=== PATIENT | female | born 1995 | race American Indian/Alaskan Native ===

== ENCOUNTER 2017-06-26 18:39 | Emergency (ER) | payer OTHER ==
[~2017-06-26] VITALS: Ht 172.7 cm; Wt 61.2 kg
[~2017-06-26 18:39] MED LIST: BACTRIM DS TAB1 EACH PO; BUSPIRONE HCL15 MG PO; CYCLOBENZAPRINE5 MG PO; DAYPRO600 MG PO; DOXYCYCLINE HY100 MG PO; FLAGYL500 MG PO; IBUPROFEN600 MG PO; IBUPROFEN800 MG PO; KEFLEX500 MG PO; MACROBID 100 M100 MG PO; PAROXETINE HCL10 MG PO; PYRIDIUM200 MG PO; ROBAXIN-750750 MG PO; TRAMADOL HCL50 MG PO; ULTRAM50 MG PO; ZOFRAN ODT8 MG PO
[2017-06-26] MEDS ORDERED: ZOFRAN4 MG PO (18:52)
== END 2017-06-26 19:50 | disposition home or self-care (01) ==
LOC: ED 18:39
DX: S61.216A Laceration without foreign body of right little finger without damage to nail, initial encounter (principal); J45.909 Unspecified asthma, uncomplicated; F41.9 Anxiety disorder, unspecified; N83.209 Unspecified ovarian cyst, unspecified side; F17.200 Nicotine dependence, unspecified, uncomplicated; Z88.8 Allergy status to other drugs, medicaments and biological substances; Z79.899 Other long term (current) drug therapy; X58.XXXA Exposure to other specified factors, initial encounter
CPT/HCPCS: 99282

== ENCOUNTER 2017-12-12 17:20 | Emergency (ER) | payer OTHER ==
[~2017-12-12] VITALS: Ht 172.7 cm; Wt 61.2 kg
[~2017-12-12 17:20] MED LIST changes: +ZOFRAN4 MG PO
[2017-12-12] MEDS ORDERED: GABAPENTIN300 MG PO (17:41)
[2017-12-12] MEDS ORDERED: BUPRENORPHINE HC8 MG SL (17:42)
[2017-12-12] MEDS ORDERED: GOLYTELY SOLU4000 ML PO (18:32)
== END 2017-12-12 18:49 | disposition home or self-care (01) ==
LOC: ED 17:20
DX: K59.00 Constipation, unspecified (principal); J45.909 Unspecified asthma, uncomplicated; F41.9 Anxiety disorder, unspecified; F43.10 Post-traumatic stress disorder, unspecified; F17.200 Nicotine dependence, unspecified, uncomplicated; Z79.899 Other long term (current) drug therapy
CPT/HCPCS: 74018; 81001; 84703; 99283

== ENCOUNTER 2018-05-03 22:36 | Emergency (ER) | payer OTHER ==
[~2018-05-03] VITALS: Ht 172.7 cm; Wt 6492.3 kg
[~2018-05-03 22:36] MED LIST changes: +BUPRENORPHINE HC8 MG SL; +GABAPENTIN300 MG PO; +GOLYTELY SOLU4000 ML PO
[2018-05-04] MEDS ORDERED: KEFLEX500 MG PO (00:13)
[2018-05-04] MEDS ORDERED: BACTRIM DS TAB1 EACH PO (00:13)
== END 2018-05-04 00:47 | disposition home or self-care (01) ==
LOC: ED 22:36
DX: L03.114 Cellulitis of left upper limb (principal); F11.10 Opioid abuse, uncomplicated; Z23 Encounter for immunization; F17.200 Nicotine dependence, unspecified, uncomplicated; Z79.899 Other long term (current) drug therapy
CPT/HCPCS: 90471; 90715; 99283

== ENCOUNTER 2018-05-26 20:42 | Emergency (ER) | payer OTHER ==
[~2018-05-26] VITALS: Ht 172.7 cm; Wt 61.2 kg
[2018-05-26] MEDS ORDERED: CEPHALEXIN500 MG PO (21:17)
[2018-05-26] MEDS ORDERED: IBUPROFEN600 MG PO (21:17)
== END 2018-05-26 21:40 | disposition home or self-care (01) ==
LOC: ED 20:42
DX: K08.89 Other specified disorders of teeth and supporting structures (principal); F17.200 Nicotine dependence, unspecified, uncomplicated; Z79.899 Other long term (current) drug therapy
CPT/HCPCS: 99282

== ENCOUNTER 2018-12-11 15:05 | Emergency (ER) | payer OTHER ==
[~2018-12-11] VITALS: Ht 172.7 cm; Wt 61.2 kg
[~2018-12-11 15:05] MED LIST changes: +CEPHALEXIN500 MG PO
== END 2018-12-11 17:40 | disposition home or self-care (01) ==
LOC: ED 15:05
DX: S16.1XXA Strain of muscle, fascia and tendon at neck level, initial encounter (principal); Z88.8 Allergy status to other drugs, medicaments and biological substances; Z79.899 Other long term (current) drug therapy; Y04.8XXA Assault by other bodily force, initial encounter
CPT/HCPCS: 99283

== ENCOUNTER 2019-07-13 12:18 | Emergency (ER) | payer OTHER ==
[~2019-07-13] VITALS: Ht 172.7 cm; Wt 72.6 kg
[2019-07-13] MEDS ORDERED: BACTRIM DS TAB1 EACH PO (14:45)
== END 2019-07-13 15:02 | disposition home or self-care (01) ==
LOC: ED 12:18
DX: N39.0 Urinary tract infection, site not specified (principal); F43.10 Post-traumatic stress disorder, unspecified; F41.9 Anxiety disorder, unspecified; J45.909 Unspecified asthma, uncomplicated; F17.200 Nicotine dependence, unspecified, uncomplicated; Z79.899 Other long term (current) drug therapy; Z88.8 Allergy status to other drugs, medicaments and biological substances
CPT/HCPCS: 36415; 81001; 84703; 87491; 87591; 96372; 99283; J1885

== ENCOUNTER 2022-03-09 16:44 | Observation (INO) | payer OTHER ==
[~2022-03-09] VITALS: Ht 172.7 cm; Wt 82.6 kg
--- NOTE | 2022-03-10 09:24 | PR ---
[facility] [address] [place], [place] [address] Signed AP Progress Notes Datetime Report Generated by PALOMO: 03/10/2022 09:23 Chief Complaint: Fall PHYSICAL EXAM: [id number] General: Normal HEENT: Normal Neurologic: Normal Thyroid: Normal Cardiovascular: Normal Respiratory: Normal Physical Exam Comments: No abdominal bruising. Uterus nontender, gravid, w/ + movement palpated Impression: IUP @ 32w2d Fall w/ contractions; no evidence of abruption Polysubstance use disorder Plan: Pt seen and examined. Doing well. Ambulating, voiding, and tolerating full diet. Denies pain, but c/o very mild uterine cramping. No vaginal bleeding. + movement. Reviewed US yesterday. No evidence of abruption at this point, but continued uterine irritibility. Recommend continued inpatient monitoring likely for another 24 hrs. Will coordinate social media community manager for patient. Called Methadone clinic for updated dosing and confirmed 150mg po daily dose. RN reports debridging machine operator c/o pt and partner in the bathroom for "a couple of hours showering together" with a "rank odor" coming from the bathroom. Pt denies methamphetamine use "in the last 24 hrs." Discussed addicition and treatment in detail. All questions answered. VITAL SIGNS: [id number] Vital Signs: Reviewed; Within Normal Limits EXAM: [id number] Dilatation: 0.0 Contraction Comments: every 2-3 minutes MEMBRANES: [id number] FETUS A: [id number] FHR Baseline: 130 Variability: Moderate 6-25bpm Accelerations: 15X15 FETUS B: [id number] PROGRESS NOTES: [id number] Signing Physician: Daya Kirk DO *Electronically Signed* 03/10/22922 DAYA KIRK DO PATIENT NAME: HEBER GONZALEZ GLORIA PROGRESS NOTE DATE OF : 97 PHYSICIAN: DAYA KIRK DO RPT #: [id number] REPORT IS CONFIDENTIAL AND NOT TO BE RELEASED WITHOUT AUTHORIZATION [address] [place], [place] [address] Signed Copies: ~ *Electronically Signed* 03/10/22922 DAYA KIRK DO PATIENT NAME: HEBER GONZALEZ PROGRESS NOTE DATE OF : 97 PHYSICIAN: DAYA KIRK DO RPT #: [id number] REPORT IS CONFIDENTIAL AND NOT TO BE RELEASED WITHOUT AUTHORIZATION
--- NOTE | 2022-03-10 12:31 | PR ---
[facility] [address] [place], [place] [address] Signed AP Progress Notes Datetime Report Generated by PALOMO: 03/10/2022 12:31 Chief Complaint: Fall PHYSICAL EXAM: [id number] General: Normal HEENT: Normal Neurologic: Normal Thyroid: Normal Cardiovascular: Normal Respiratory: Normal Back: Normal Abdomen: Normal Genitourinary Exam: Not Done Extremities: Normal Physical Exam Comments: No abdominal bruising. Uterus nontender, gravid, w/ + movement palpated Impression: IUP @ 32w2d Fall - no evidence of abruption Polysubstance abuse Plan: Pt denies drug use while inpatient Reviewed aberrant behavior and discussed concerns w/ pt and partner. They will avoid additional aberrant behaviors such as long showers, excessive perfumes/air fresheners, etc. Pt reports no contractions or cramping. C/O constipation. Will start miralax and colace. Consider glyerine suppositories as needed. Will complete 1 hr glucose. Will check fentanyl levels at that time (send out lab) Pt declines referral or transfer to inpatient rehab and feels "really confident about becoming sober on my own." VITAL SIGNS: [id number] Vital Signs: Reviewed; Within Normal Limits EXAM: [id number] Dilatation: 0.0 Contraction Comments: every 2-3 minutes MEMBRANES: [id number] FETUS A: [id number] FHR Baseline: 130 Variability: Moderate 6-25bpm Accelerations: 15X15 FETUS B: [id number] *Electronically Signed* 03/10/22 [facility] KIRK,DAYA D DO PATIENT NAME: HEBER GONZALEZ PROGRESS NOTE DATE OF : [birth year] PHYSICIAN: DAYA KIRK DO RPT #: [id number] REPORT IS CONFIDENTIAL AND NOT TO BE RELEASED WITHOUT AUTHORIZATION [facility] [address] [place] [address] Signed PROGRESS NOTES: [id number] Signing Physician: Daya Kirk DO Copies: ~ *Electronically Signed* 03/10/22 1231 DAYA KIRK DO PATIENT NAME: HEBER GONZALEZ PROGRESS NOTE DATE OF : 97 PHYSICIAN: DAYA KIRK DO RPT #: [id number] REPORT IS CONFIDENTIAL AND NOT TO BE RELEASED WITHOUT AUTHORIZATION
--- NOTE | 2022-03-10 18:52 | PR ---
[facility] [address] [place], [place] [address] Signed AP Progress Notes Datetime Report Generated by PALOMO: 03/10/2022 18:52 Chief Complaint: Fall PHYSICAL EXAM: [id number] General: Normal HEENT: Normal Neurologic: Normal Thyroid: Normal Cardiovascular: Normal Respiratory: Normal Breast: Not Done Back: Normal Abdomen: Normal Genitourinary Exam: Not Done Extremities: Normal Physical Exam Comments: No abdominal bruising. Uterus nontender, gravid, w/ + movement palpated Impression: IUP @ 32w2d Fall Polysubstance use Plan: Reviewed 1 hr glucose normal Continued uterine irritibility ; denies painful contractions. No bleeding. Cat 1 tracing. No evidence of abruption Pt met with group social worker today; reviewed progress w/ Brittaney. Discharge home. Pt agrees and understands the importance of care. Reviewed indicaitons for reevaluation including bleeding or decreased movement. VITAL SIGNS: [id number] Vital Signs: Reviewed; Within Normal Limits EXAM: [id number] Dilatation: 0.0 Contraction Comments: every 2-3 minutes MEMBRANES: [id number] FETUS A: [id number] FHR Baseline: 130 Variability: Moderate 6-25bpm Accelerations: 15X15 FETUS B: [id number] PROGRESS NOTES: [id number] *Electronically Signed* 03/10/22 1852 DAYA KIRK DO PATIENT NAME: HEBER GONZALEZ PROGRESS NOTE DATE OF : 97 PHYSICIAN: DAYA KIRK DO RPT #: [id number] REPORT IS CONFIDENTIAL AND NOT TO BE RELEASED WITHOUT AUTHORIZATION [facility] [address] [place], [place] [address] Signed Signing Physician: Daya Kirk DO Copies: ~ *Electronically Signed* 03/10/22 185 DAYA KIRK DO PATIENT NAME: HEBER GONZALEZ PROGRESS NOTE DATE OF : 97 PHYSICIAN: DAYA KIRK DO RPT #: [id number] REPORT IS CONFIDENTIAL AND NOT TO BE RELEASED WITHOUT AUTHORIZATION
== END 2022-03-10 19:58 | disposition home or self-care (01) ==
LOC: FBCO 16:44 → FBC 17:47
PROVIDERS: ADMIT General Practice; ATTEND General Practice
DX: O47.03 False labor before 37 completed weeks of gestation, third trimester (principal); O99.323 Drug use complicating pregnancy, third trimester; F19.10 Other psychoactive substance abuse, uncomplicated; Z91.81 History of falling; Z3A.32 32 weeks gestation of pregnancy; Z20.822 Contact with and (suspected) exposure to COVID-19
CPT/HCPCS: 36415; 76815; 76817; 82731; 82950; 85027; 86762; 86850; 86900; 86901; 87088; 87340; 87522; 87536; C9803; J7121; U0003

== ENCOUNTER 2022-04-21 14:27 | Inpatient (IN) | payer OTHER ==
[~2022-04-21] VITALS: Ht 172.7 cm; Wt 97.5 kg
[2022-04-27] MEDS ORDERED: METHADONE HCL40 MG PO (07:35)
--- NOTE | 2022-04-27 10:22 | NUR ---
04/27/22 1022 Marilu Coker 0924 PT ARRIVED IN PACU SLEEPY. 0945 C/O ABD PAIN 06/01 WITH FUNDAL MASSAGE. 0949 FENTANYL 50MCG GIVEN IVP. 0950 PT VERY TEARFUL. VERSED 2MG GIVEN IVP. 1000 PT RESTING. REU. NO C/O'S. 1015 TO ROOM 106. SPOUSE AT BEDSIDE. BED PLUGGED IN. REPORT GIVEN TO RN.
--- NOTE | 2022-04-27 12:36 | PR ---
[facility] [address] [place], [place] [address] Signed PP Progress Notes Datetime Report Generated by PALOMO: 04/27/2022 12:36 SUBJECTIVE: [id number] Pain: Abnormal Nausea/Vomiting: Denies Flatus: No Vital Signs: [id number] Vital Signs: Reviewed Notable Details: Severe range BPs; see below EXAM: Ongoing Cardiovascular: Normal Respiratory: Normal Abdomen/Uterus: Normal CVA Tenderness: Not Done Extremities: Normal Incision: Normal Progress: Not Applicable IMPRESSION/PLAN/PROCEDURES: [id number] Progress Notes: Call from RN of pt w/ persistently elevated severe range BPs. No ALICIA, RUQ pain or visual changes. Pt reporting pain not well controlled (see below). Pt was started on labetalol per protocol and BPs now non-severe range. PreE labs pending. Will monitor closely and consider addition of mag sulfate if indicated. Report from RN; pt w/ pipe and machine set up in her hand in hospital bed. was instructed to remove all belongings from room by supervisor dimension warehouse and he complied. He has not returned to the hospital. Reviewed w/ pt; reports that she did not have pipe but admits to machine set up. States she "wanted to smoke because her pain was so bad." Declines nicotine patch. Does not clarify what substance she wanted to smoke. Reviewed pain control w/ RN at bedside. Pt sleepy but rousable. Visually pain appears to be well controlled but pt reporting 10/10. Will see if pt tolerates PO intake and start oral pain meds. Had a long conversation regarding expectations for pain control and multimodal pain control. Pt did receive TAP block postoperatively. Signing Physician: Daya Kirk DO Copies: ~ *Electronically Signed* 04/27/22 1236 DAYA KIRK DO PATIENT NAME: SHERRY GONZALEZA SUJIT RUSSELL GLORIA PROGRESS NOTE DATE OF : 97 PHYSICIAN: DAYA KIRK DO RPT #: [id number] REPORT IS CONFIDENTIAL AND NOT TO BE RELEASED WITHOUT AUTHORIZATION
--- NOTE | 2022-04-27 13:34 | PR ---
[facility] [address] [place], [place] [address] Signed PP Progress Notes Datetime Report Generated by CPN: 04/27/2022 13:34 SUBJECTIVE: [id number] Pain: Abnormal Nausea/Vomiting: Denies Flatus: No Vital Signs: [id number] Vital Signs: Reviewed Notable Details: Severe BPs improved EXAM: Ongoing Cardiovascular: Normal Respiratory: Normal Abdomen/Uterus: Normal CVA Tenderness: Not Done Extremities: Normal Incision: Normal Progress: Not Applicable IMPRESSION/PLAN/PROCEDURES: [id number] Other Impression: PreE w/ severe features Progress Notes: Reviewed labs; labs and BPs confirm dx of preE with severe features. Continue labetalol prn per protocol. Will start Mag Sulfate 6g IV loading dose w/ 2g/hr maintence; reevaulate in 24 hrs. Labs q 6 hr. Pt c/o severe pain. Reviewed multimodal pain control after discussing w/ Nigel ENVIRONMENTAL HEALTH INSPECTOR: TAP block, methadone 200mg po, Ofirmiv 1mg IV q 6 hr prn pain, toradol, Dilaudid 1mg po q2 hr, percocet 10mg PO TID, and cyclobenzaprine 10mg PO daily. Anesthesia open to reevaluation for additional TAP block tomorrow if pain control not adequate. Pt and frustrated w/ pain; had a long and constructive conversation regarding addiction of history and principals of management of pain. Pt and much more agreeable. All questions answered Signing Physician: Daya Kirk DO Copies: ~ *Electronically Signed* 04/27/22 5665 DAYA KIRK DO PATIENT NAME: HEBER GONZALEZ PROGRESS NOTE DATE OF : 97 PHYSICIAN: DAYA KIRK DO RPT #: [id number] REPORT IS CONFIDENTIAL AND NOT TO BE RELEASED WITHOUT AUTHORIZATION
--- NOTE | 2022-04-28 07:49 | PR ---
[facility] [place] [facility] [address] [place], [place] [address] Signed PP Progress Notes Datetime Report Generated by PALOMO: 04/28/2022 07:49 SUBJECTIVE: [id number] Pain: Abnormal Nausea/Vomiting: Denies Flatus: Yes Bowel Movement: No Vital Signs: [id number] Vital Signs: Reviewed Notable Details: Severe BPs improved EXAM: Ongoing Cardiovascular: Normal Respiratory: Normal Abdomen/Uterus: Normal Breasts: Not Done CVA Tenderness: Not Done Extremities: Abnormal Incision: Normal Progress: Not Applicable Exam Comments: SCDs in place. Edema improved. Declined exam of incision IMPRESSION/PLAN/PROCEDURES: [id number] Other Impression: PreE w/ severe features Plan: Continue Present Management Progress Notes: Pt seen and examined. C/O unmanaged pain despite multimodal pain management; Reviewed pain control w/ PM RN. Pt was caught with rebar bender and a straw and nurse described acrid smell in room; pt was then sleepy and comfortable. Discussed w/ pt and she states that she had the rebar bender because she wanted to smoke fentanyl but she claims that she has not used since her hospitalization. Discussed presence of hospital policies to ensure safety of patients and staff. She states that if her is asked to leave she will leave AMA. BPs much improved. Labs show continued thrombocytopenia and Hgb 7.5. Liver enzymes normal and creat stable. Continues on Mag Sulfate. Signing Physician: Daya Kirk DO *Electronically Signed* 04/28/22 0749 DAYA KIRK DO PATIENT NAME: GONZALEZHEBER SUJITKRIS CASTRO PROGRESS NOTE DATE OF : 97 PHYSICIAN: DAYA KIRK DO RPT #: [id number] REPORT IS CONFIDENTIAL AND NOT TO BE RELEASED WITHOUT AUTHORIZATION
--- NOTE | 2022-04-28 14:39 | PR ---
[facility] [address] [place], [place] [address] Signed PP Progress Notes Datetime Report Generated by CPN: 04/28/2022 14:39 SUBJECTIVE: [id number] Pain: Within Normal Limits Nausea/Vomiting: Denies Flatus: Yes Bowel Movement: No Vital Signs: [id number] Vital Signs: Reviewed Notable Details: No severe range BPs EXAM: Ongoing Cardiovascular: Normal Respiratory: Normal Abdomen/Uterus: Normal Lochia: Normal Vulva/Perineum: Not Done Breasts: Not Done CVA Tenderness: Normal Extremities: Normal Incision: Normal Progress: Not Applicable Exam Comments: Fundus firm U-2 nontender. Somewhat bloated and tympanic abdomen. No guarding or rebound. Incision well healing. IMPRESSION/PLAN/PROCEDURES: [id number] Other Impression: PreE w/ severe features Plan: Continue Present Management Progress Notes: Reviewed progress; bps well controlled w/out meds and excellent urine output. Will d/c mag and IV fluids. No tachycardia and normal exam; noted anemia and thrombocytopenia, but no signs of hypovolemia or bleeding. Discussed possible need for iron infusion or transfusion. Keep ohara cath overnight. Repeat labs in AM. Reviewed thrombocytopenia w/ anesthesia; will still consider TAP block later today. Pt very pleasant and cooperative Signing Physician: Daya Kirk DO Copies: ~ *Electronically Signed* 04/28/22 8706 DAYA KIRK DO PATIENT NAME: SHERRY GONZALEZA SUJIT RUSSELL GLORIA PROGRESS NOTE DATE OF : 97 PHYSICIAN: DAYA KIRK DO RPT #: [id number] REPORT IS CONFIDENTIAL AND NOT TO BE RELEASED WITHOUT AUTHORIZATION
--- NOTE | 2022-04-29 08:08 | PR ---
[facility] [address] [place], [place] [address] Signed PP Progress Notes Datetime Report Generated by CPN: 04/29/2022 08:08 SUBJECTIVE: [id number] Pain: Within Normal Limits Nausea/Vomiting: Denies Flatus: Yes Bowel Movement: No Vital Signs: [id number] Vital Signs: Reviewed; Within Normal Limits Notable Details: No severe range BPs EXAM: Ongoing Cardiovascular: Normal Respiratory: Normal Abdomen/Uterus: Normal Lochia: Not Done Vulva/Perineum: Not Done Breasts: Not Done CVA Tenderness: Normal Extremities: Normal Incision: Normal Progress: Not Applicable Exam Comments: Edema improving. Fundus firm U-2 nontender. Incision well healing. IMPRESSION/PLAN/PROCEDURES: [id number] Impression: Normal Progression Other Impression: PreE w/ severe features Plan: Continue Present Management Progress Notes: Pt seen and examinied. Doing well. Voiding and tolerating full diet. Has not ambulated. Pain well controlled w/ current regimen. Hgb improved now 7.6. Plts and Creat stable. Urine output excellent. Discussed iron infusion and pt agrees. Discussed discharge planning; consider d/c home vs d/c to rehabilitation. Pt is at high risk for substance abuse and would like to pursue options. She is worried about management of pain while in rehab. Will consult social work. Signing Physician: Daya Kirk DO Copies: ~ *Electronically Signed* 04/29/22 0808 DAYA KIRK DO PATIENT NAME: LUJANESA SUJIT RUSSELL GLORIA PROGRESS NOTE DATE OF : 97 PHYSICIAN: DAYA KIRK DO RPT #: [id number] REPORT IS CONFIDENTIAL AND NOT TO BE RELEASED WITHOUT AUTHORIZATION
--- NOTE | 2022-04-29 12:09 | NUR ---
RN GIANNI UPDATED ME ON PT'S CONDITION. BABY'S FATHER GONE, NOT MUCH INTEREST IN BABY'S CONDITION. INFORMED RN WE ARE AVAILABLE IF NEEDED-ACKNOWLEDGED.
--- NOTE | 2022-04-30 09:30 | PR ---
[facility] [address] [place], [place] [address] Signed PP Progress Notes Datetime Report Generated by PALOMO: 04/30/2022 09:30 SUBJECTIVE: [id number] Pain: Within Normal Limits Nausea/Vomiting: Denies Flatus: Yes Bowel Movement: No Vital Signs: [id number] Vital Signs: Reviewed; Within Normal Limits Notable Details: No severe range BPs EXAM: Ongoing Cardiovascular: Normal Respiratory: Normal Abdomen/Uterus: Normal Lochia: Normal Vulva/Perineum: Not Done Breasts: Not Done CVA Tenderness: Normal Extremities: Normal Incision: Normal Progress: Not Applicable Exam Comments: Fundus firm U-2 nontender. Incision healing well. Pt declines staple removal at this time. Pedal edema much improved. IMPRESSION/PLAN/PROCEDURES: [id number] Impression: Normal Progression Other Impression: PreE w/ severe features Plan: Continue Present Management Progress Notes: Pt seen and examined. Doing well. Ambulating ,voiding (with postvoid residual 5cc last night), and tolerating full diet. Pain well controlled. No fevers/chills/lightheadeness or other concerns. Has not had bowel movement; reviewed chronic constipation likely exacerbated by opioid dependence. Pt declined bowel regimen in the hospital and we reviewed options for bowel regimen in the future. Recommend establishing w/ PCP and she would like me to reach out to a provider in our office. Reviewed Rubella non-immune status and benefit of MMR vaccination prior to discharge. She strongly declines. Pt declines staple removal at this time; discussed needs to be done in next 1-2 days. Pt desires to have out at [facility]; will likely need out in the ED. Reviewed Preeclampsia in detail. Bps normal; needs bp check in 48-72 hrs. Pt will coordinate bp check either in ED at time of Reviewed / postoperative pain control. Long conversation w/ methadone clinic. They are closed *Electronically Signed* 04/30/22929 DAYA KIRK DO PATIENT NAME: SHERRY GONZALEZA SUJIT CASTRO PROGRESS NOTE DATE OF : 97 PHYSICIAN: DAYA KIRK DO RPT #: [id number] REPORT IS CONFIDENTIAL AND NOT TO BE RELEASED WITHOUT AUTHORIZATION [facility] [address] [place] [id number] Signed tomorrow and unable to provide Methadone dosage for patient after discharge tomorrow. Can coordinate dosing at [facility] on Monday. Pt at extreme risk for relapse. Will keep patient one additional day to provide inpatient AM methadone dosing. Discussed w/ Stewart Hutson in pharmacy if there are any additional options and it does not appear there are other options. Pt understands and agrees. Signing Physician: Daya Kirk DO Copies: ~ *Electronically Signed* 04/30/22929 DAYA KIRK DO PATIENT NAME: LUJANESA SUJIT RUSSELL GLORIA PROGRESS NOTE DATE OF : 97 PHYSICIAN: DAYA KIRK DO RPT #: [id number] REPORT IS CONFIDENTIAL AND NOT TO BE RELEASED WITHOUT AUTHORIZATION
--- NOTE | 2022-04-30 11:29 | PR ---
[facility] [address] [place], [place] [address] Signed PP Progress Notes Datetime Report Generated by CPN: 04/30/2022 11:29 SUBJECTIVE: [id number] Pain: Within Normal Limits Nausea/Vomiting: Denies Flatus: Yes Bowel Movement: No Vital Signs: [id number] Vital Signs: Reviewed; Within Normal Limits Notable Details: No severe range BPs EXAM: Ongoing Cardiovascular: Normal Respiratory: Normal Abdomen/Uterus: Normal Lochia: Normal Vulva/Perineum: Not Done Breasts: Not Done CVA Tenderness: Normal Extremities: Normal Incision: Normal Progress: Not Applicable Exam Comments: Fundus firm U-2 nontender. Incision healing well. Pt declines staple removal at this time. Pedal edema much improved. IMPRESSION/PLAN/PROCEDURES: [id number] Impression: Normal Progression Other Impression: PreE w/ severe features Plan: Continue Present Management Progress Notes: Called to pt room. RN noted acrid odor coming from the room and security was called. Pt denies using illicit drugs, however another city controller was found between the couch cushions. I confronted the pt and she states that she would like to leave. Discharge order placed. Pt states that she has Narcan at home. Pt will be escorted out of the buildling by security. Signing Physician: Daya Kirk DO Copies: ~ *Electronically Signed* 04/30/22 1129 DAYA KIRK DO PATIENT NAME: HEBER GONZALEZ PROGRESS NOTE DATE OF : 97 PHYSICIAN: DAYA KIRK DO [facility] #: [id number] REPORT IS CONFIDENTIAL AND NOT TO BE RELEASED WITHOUT AUTHORIZATION
--- NOTE | 2022-04-30 13:04 | EKG ---
[facility] [address] [facility] [place], [place] [address] Signed Normal sinus rhythm Normal ECG No previous ECGs available Confirmed by UMA BEE MD ([id number]) on 04/30/2022 1:04:45 PM Electronically Signed By: UMA BEE MD 04/30/22 1304 PATIENT NAME: CARLOSHEBERELZBIETA CASTRO Electrocardiogram DATE OF : 97 PHYSICIAN: UMA BEE MD REPORT #: [id number] REPORT IS CONFIDENTIAL AND NOT TO BE RELEASED WITHOUT AUTHORIZATION
--- NOTE | 2022-05-01 17:42 | OR ---
[facility] [address], [place] [address] Signed DATE OF OPERATION: 04/27/2022 SURGEON: Daya Kirk DO PREOPERATIVE DIAGNOSES: 1. Intrauterine at 39 weeks gestation. 2. Breech presentation and declined external cephalic version. 3. Polysubstance abuse. 4. Very limited care. POSTOPERATIVE DIAGNOSES: 1. Intrauterine at 39 weeks gestation. 2. Breech presentation and declined external cephalic version. 3. Polysubstance abuse. 4. Very limited care. PROCEDURE PERFORMED: Primary low transverse delivery. ANESTHESIA: General per the patient's request. TAP block following the procedure. CLOTH COLORS EXAMINER: James Horton MD. DRAINS: Hoyos catheter to gravity. COMPLICATIONS: None. FINDINGS: Delivery of viable female in a jonas breech presentation with Apgars of 9 and 8, weighing 7 pounds 11 ounces. No nuchal cord. Normal uterus, tubes, ovaries and placenta. ESTIMATED BLOOD LOSS: 650 mL. INDICATIONS: Electronically Signed By: DAYA KIRK DO 05/01/22 1742 PATIENT NAME: HEBER EASTON OPERATIVE REPORT DATE OF : [birth year] REPORT #: [id number] PHYSICIAN: DAYA KIRK DO PCP: NO PRIMARY CARE PHYSICIAN REPORT IS CONFIDENTIAL AND NOT TO BE RELEASED WITHOUT AUTHORIZATION [facility] [address] [place] [id number] Signed Ms. Easton is a 26-year-old nulliparous female, who presents to Labor and Delivery at 39 weeks and one day gestation for scheduled primary low transverse delivery for persistent breech presentation. complicated by breech presentation, polysubstance abuse, including methamphetamines and opioids. She is in treatment at the methadone clinic, but also uses large amounts of illicit fentanyl. The patient declined external cephalic version. She declines spinal anesthetic and request general anesthesia. Risks, benefits, and alternatives were discussed in detail with the patient. The patient understands and wishes to proceed with the procedure. TECHNIQUE: The patient was taken to the operating room where a time-out was performed to confirm correct patient and correct procedure. PROCEDURE IN DETAIL: The patient was prepped and draped in the supine position with a bump under the right hip. Hoyos catheter was inserted. The patient received Ancef 2 g preoperatively per SCIP protocol and no heparin was indicated. General anesthesia was then performed and a Pfannenstiel skin incision was made and carried down to the fascia. The fascia was nicked in the midline and fascial incision was extended bilaterally using curved Cardenas scissors. The fascia was grasped with Chiquis's, elevated, and the underlying rectus dissected off bluntly and sharply. The rectus muscle was divided in the midline bluntly and the peritoneum was entered bluntly. Peritoneal incision was extended bilaterally using blunt dissection. An Marco A self retractor was placed and hysterotomy was performed in the lower uterine segment for clear fluid. Hysterotomy was extended bilaterally using blunt dissection. Surgeon's hand was placed in the uterus and the buttocks was delivered after grasping the hips. The was delivered to the and anterior axilla and the arm was swept medially and delivered. The was rotated 180 degrees and anterior arm was swept medially and delivered. The was then rotated in the occiput anterior position. The head was flexed and the was gently delivered. The was vigorous and cried upon delivery. Cord was doubly clamped and cut and the handed to the waiting pediatric team for further care. Cord blood was obtained for routine analysis and the section of the cord was obtained for necessary additional testing. The placenta was manually expressed, intact with a centrally inserted three-vessel cord. The uterus was cleared of any remaining products of conception or clot and bleeding was noted to be light. Pitocin was administered per protocol. The hysterotomy was then repaired using 0 Monocryl in two layers. The 1st being a running locked layer and the 2nd a vertical imbricating suture. Excellent hemostasis was appreciated. The pelvis was irrigated and found to be hemostatic. Normal tubes and ovaries were noted. No abnormalities in the uterus. The peritoneum was then reapproximated using 2-0 Vicryl in a running manner. The rectus sheath was evaluated and several perforating vessels that were oozing were made hemostatic. There was some slight oozing of the rectus and this was made hemostatic Electronically Signed By: DAYA KIRK DO 05/01/221741 PATIENT NAME: HEBER EASTON OPERATIVE REPORT DATE OF : [birth year] REPORT #: [id number] PHYSICIAN: DAYA KIRK DO PCP: NO PRIMARY CARE PHYSICIAN REPORT IS CONFIDENTIAL AND NOT TO BE RELEASED WITHOUT AUTHORIZATION [facility] [address] [place] [address] [place], [place] [address] Signed with two [id number] sutures. Once hemostasis of the rectus was appreciated, it was irrigated and again found to be hemostatic. The rectus was then loosely reapproximated in the midline with three interrupted sutures of 0 Vicryl. Fascia was reapproximated using 0 Vicryl in a running nonlocked manner. Subcu was irrigated and made hemostatic with judicious use of Bovie electrocautery. It was then closed in two layers, the 1st being a 2-0 Vicryl in a running nonlocked manner and the skin was closed using surgical vikas. The uterus was Crede'd for scant amount of blood. The patient remained in the operating room for a TAP block per Anesthesia. Sponge, needle, and instrument count was correct x2 at the end of procedure. Dr. Horton was present and participated in all portions of the procedure. Daya Kirk DO JDW/MODL /[id number] Copies: ~ Electronically Signed By: DAYA KIKR DO 05/01/22 1742 PATIENT NAME: HEBER EASTON OPERATIVE REPORT DATE OF : [birth year] REPORT #: [id number] PHYSICIAN: DAYA KIRK DO PCP: NO PRIMARY CARE PHYSICIAN REPORT IS CONFIDENTIAL AND NOT TO BE RELEASED WITHOUT AUTHORIZATION
== END 2022-04-30 11:40 | disposition home or self-care (01) | DRG 787 ==
LOC: FBC 04-27 05:31
PROVIDERS: ADMIT Obstetrics & Gynecology; ATTEND Obstetrics & Gynecology
PROC: 3E0T3BZ Introduction of Anesthetic Agent into Peripheral Nerves and Plexi, Percutaneous Approach (ICD-10-PCS; 2022-04-27)
PROC: 10D00Z1 Extraction of Products of Conception, Low, Open Approach (ICD-10-PCS; principal; 2022-04-27 07:30)
DX: O32.1XX0 Maternal care for breech presentation, not applicable or unspecified (principal); O99.324 Drug use complicating childbirth; Z3A.39 39 weeks gestation of pregnancy; Z37.0 Single live birth; F15.10 Other stimulant abuse, uncomplicated; F11.10 Opioid abuse, uncomplicated; Z20.822 Contact with and (suspected) exposure to COVID-19; O14.15 Severe pre-eclampsia, complicating the puerperium; O90.81 Anemia of the puerperium; O72.3 Postpartum coagulation defects; D69.6 Thrombocytopenia, unspecified; K59.03 Drug induced constipation; T40.2X5A Adverse effect of other opioids, initial encounter; O99.62 Diseases of the digestive system complicating childbirth; O99.334 Smoking (tobacco) complicating childbirth; F17.210 Nicotine dependence, cigarettes, uncomplicated; O99.344 Other mental disorders complicating childbirth; F43.10 Post-traumatic stress disorder, unspecified; F32.A Depression, unspecified; F42.9 Obsessive-compulsive disorder, unspecified; F12.90 Cannabis use, unspecified, uncomplicated; Z98.890 Other specified postprocedural states; Z86.19 Personal history of other infectious and parasitic diseases; O99.52 Diseases of the respiratory system complicating childbirth; J45.909 Unspecified asthma, uncomplicated; Z79.51 Long term (current) use of inhaled steroids; Z79.899 Other long term (current) drug therapy; Z79.891 Long term (current) use of opiate analgesic; Z79.2 Long term (current) use of antibiotics
CPT/HCPCS: 01961; 36415; 76942; 80053; 82565; 82570; 82728; 83615; 83735; 84156; 84550; 85027; 85060; 86850; 86900; 86901; 87502; 93005; 93010; A9270; J0131; J0330; J0690; J1100; J1170; J1650; J1885; J2001; J2250; J2405; J2590; J2795; J3010; J3475; J7121; Q0138; U0003

== ENCOUNTER 2023-03-24 10:46 | Emergency (ER) | payer OTHER ==
[~2023-03-24] VITALS: Ht 172.7 cm; Wt 100.0 kg
[~2023-03-24 10:46] MED LIST changes: +METHADONE H5 MG/5 ML PO
[2023-03-24] MEDS ORDERED: GABAPENTIN300 MG PO (10:59)
[2023-03-24] MEDS ORDERED: BUPROPION XL150 MG PO (10:59)
[2023-03-24] MEDS ORDERED: ISIBLOOM 28 DA1 EACH PO (10:59)
[2023-03-24] MEDS ORDERED: OXYBUTYNIN CHLOR5 MG PO (10:59)
[2023-03-24] MEDS ORDERED: AMOX TR-K CLV1 EAC1 PO (11:19)
[2023-03-24 11:25] VITALS: BP 129/78
== END 2023-03-24 11:26 | disposition home or self-care (01) ==
LOC: ED 10:46
DX: J32.9 Chronic sinusitis, unspecified (principal); F17.200 Nicotine dependence, unspecified, uncomplicated; Z88.8 Allergy status to other drugs, medicaments and biological substances; Z79.899 Other long term (current) drug therapy
CPT/HCPCS: 99283